=== PATIENT | female | born 1960 | race Caucasian/White ===

== ENCOUNTER → 2018-04-01 | Outpatient (CLI) | payer OTHER ==
[~2018-04-01] MED LIST: ABAC300; ALBU90OI INH; ALBU90OI61 INH; CELE200 PO; CRUTCH4 USE; CYCL10 PO; ENOX40I SC; FLUSAL1005 INH; FLUSAL2505 INH; GLUC500 PO; HYDACE5 PO; HYDACE5325 PO; HYDROCHLOROTHIAZIDE PO; IBUP400 PO; LANS15EC PO; Multivitamin1 EAC1; NAPR220 PO; OMEP20ER PO; Omeprazole20 M1 PO; Percocet 10-321 EACH PO; Prednisone20 MG PO; SERT100 PO; TRAM50 PO; VALSARTAN PO; VALSARTAN-HCTZ1 EAC1 PO; VICODIN 5-3001 EACH PO; ZYRTEC PO
[2018-04-03 15:07] LABS: HPV 16 Positive (Negative); HPV 18 Negative (Negative); HPV OTHER HR TYPES Negative (Negative)
== END ==
LOC: LAB 16:16 → LAB SHORT 16:16
PROVIDERS: Obstetrics & Gynecology
DX: Z12.4 Encounter for screening for malignant neoplasm of cervix (principal)
CPT/HCPCS: 87624; 87625; G0123

== ENCOUNTER 2018-08-28 10:38 | Day surgery (SDC) | payer OTHER ==
[~2018-08-28] VITALS: Ht 170.2 cm; Wt 130.4 kg
[~2018-08-28 10:38] MED LIST changes: +ALBU3IS INH; +BENADRYL25 MG PO; +CRANBERRY250 MG; +Flovent 110 MCG12 GM INH; +IBUP800 PO; +LOSARTAN-HCTZ1 EACH PO; +MONT10T PO; +OMEPRAZOLE MAGN20 MG PO; +OXYC10TA19 PO; +One Daily Comp1 EACH PO; +POTASSIUM; +QVAR REDIHALE10.6 G1 INH; +VITAMIN D-32000 UNIT PO; +Zoloft100 MG PO
--- NOTE | 2018-08-28 11:22 | NUR ---
08/28/18 1122 Jordan Cruz 1ST IV ATTEMPT IN RH UNSUCCESSFUL, HIT VALVE, ORSC.DFT 2ND IV ATTEMPT IN RAC SUCCESSFUL. ORSC.DFT
== END 2018-08-28 13:40 | disposition home or self-care (01) ==
LOC: ORSCSDS 10:38
PROVIDERS: Internal Medicine Gastroenterology
PROC: 0DB68ZX Excision of Stomach, Via Natural or Artificial Opening Endoscopic, Diagnostic (ICD-10-PCS; principal; 2018-08-28 12:00)
PROC: 0DBN8ZX Excision of Sigmoid Colon, Via Natural or Artificial Opening Endoscopic, Diagnostic (ICD-10-PCS; principal; 2018-08-28 12:00)
PROC: 0DBM8ZX Excision of Descending Colon, Via Natural or Artificial Opening Endoscopic, Diagnostic (ICD-10-PCS; principal; 2018-08-28 12:00)
PROC: 0DB58ZX Excision of Esophagus, Via Natural or Artificial Opening Endoscopic, Diagnostic (ICD-10-PCS; principal; 2018-08-28 12:00)
PROC: 0DBL8ZX Excision of Transverse Colon, Via Natural or Artificial Opening Endoscopic, Diagnostic (ICD-10-PCS; principal; 2018-08-28 12:00)
DX: R10.11 Right upper quadrant pain (principal); K21.9 Gastro-esophageal reflux disease without esophagitis; Z86.010 Personal history of colon polyps; K22.70 Barrett's esophagus without dysplasia; K74.60 Unspecified cirrhosis of liver; K44.9 Diaphragmatic hernia without obstruction or gangrene; D12.3 Benign neoplasm of transverse colon; D12.4 Benign neoplasm of descending colon; D12.5 Benign neoplasm of sigmoid colon; K57.30 Diverticulosis of large intestine without perforation or abscess without bleeding; K64.8 Other hemorrhoids; I10 Essential (primary) hypertension; J45.909 Unspecified asthma, uncomplicated; Z87.891 Personal history of nicotine dependence; K75.81 Nonalcoholic steatohepatitis (NASH); G47.33 Obstructive sleep apnea (adult) (pediatric); E66.01 Morbid (severe) obesity due to excess calories; Z68.42 Body mass index [BMI] 45.0-49.9, adult; Z79.899 Other long term (current) drug therapy
CPT/HCPCS: 88305; 88342; J2405; J3010; J7120

== ENCOUNTER → 2019-03-31 | Outpatient (CLI) | payer OTHER ==
[2019-03-31 15:44] LABS: U Amphetamine Screen Not Detected; U Barbituate Screen Not Detected; U Benzodiazapine Screen Not Detected; U Buprenorphine Screen Not Detected; U Cannabinoids Screen Not Detected; U Cocaine Screen Not Detected; U Methadone Screen Not Detected; U Methamphetamine Screen Not Detected; U Opiates Screen Not Detected; U Oxycodone Screen DETECTED; U Phencyclidine Screen Not Detected; U Propoxyphene Screen Not Detected
== END | disposition home or self-care (01) ==
LOC: LAB SHORT 15:04 → LAB 15:04
PROVIDERS: Internal Medicine
DX: Z51.81 Encounter for therapeutic drug level monitoring (principal); Z79.891 Long term (current) use of opiate analgesic
CPT/HCPCS: G0480

== ENCOUNTER → 2019-05-12 | Outpatient (CLI) | payer OTHER ==
[2019-05-14 15:07] LABS: HPV 16 Negative (Negative); HPV 18 Negative (Negative); HPV OTHER HR TYPES Negative (Negative)
== END | disposition home or self-care (01) ==
LOC: LAB SHORT 19:27 → LAB 19:27
PROVIDERS: Obstetrics & Gynecology
DX: R87.810 Cervical high risk human papillomavirus (HPV) DNA test positive (principal)
CPT/HCPCS: 87624; 88142

== ENCOUNTER → 2020-05-23 | Outpatient (CLI) | payer OTHER | LOC: LAB SHORT 07:28 → PLD 07:28 | DX: D07.1 Carcinoma in situ of vulva (principal) | CPT/HCPCS: 88305 ==

== ENCOUNTER → 2020-05-23 | Outpatient (CLI) | payer OTHER ==
[2020-05-25 16:07] LABS: HPV 16 Negative (Negative); HPV 18 Negative (Negative); HPV OTHER HR TYPES Negative (Negative)
== END ==
LOC: LAB SHORT 17:33 → LAB 17:33
PROVIDERS: Obstetrics & Gynecology
DX: Z12.4 Encounter for screening for malignant neoplasm of cervix (principal)
CPT/HCPCS: 87624; G0123

== ENCOUNTER 2020-09-14 06:19 | Day surgery (SDC) | payer OTHER ==
[~2020-09-14] VITALS: Ht 165.1 cm; Wt 131.0 kg
[~2020-09-14 06:19] MED LIST changes: +Narcan 0.40.4 MG/ML
--- NOTE | 2020-09-14 07:54 | NUR ---
09/14/20 0754 Ritu Quintana BUPIVACAINE 0.5% 30ML MIXED WITH EPI 0.15CC FOR A CONSTITUTION OF BUPIVACAINE 0.5% W/ EPI 1:200,000. INJECTED BY DR. ELIZALDE
== END 2020-09-14 09:10 | disposition home or self-care (01) ==
LOC: ORSCSDS 06:19
PROVIDERS: Obstetrics & Gynecology
PROC: 0UBM0ZX Excision of Vulva, Open Approach, Diagnostic (ICD-10-PCS; principal; 2020-09-14 07:30)
DX: D07.1 Carcinoma in situ of vulva (principal); I10 Essential (primary) hypertension; J45.909 Unspecified asthma, uncomplicated; Z86.19 Personal history of other infectious and parasitic diseases; K76.0 Fatty (change of) liver, not elsewhere classified; Z87.891 Personal history of nicotine dependence
CPT/HCPCS: 88305; J0171; J1100; J2250; J2405; J2704; J3010

== ENCOUNTER → 2021-10-18 | Outpatient (CLI) | payer OTHER ==
[2021-10-18 15:19] LABS: U Amphetamine Screen Not Detected; U Barbituate Screen Not Detected; U Benzodiazapine Screen Not Detected; U Buprenorphine Screen Not Detected; U Cannabinoids Screen DETECTED; U Cocaine Screen Not Detected; U Methadone Screen Not Detected; U Methamphetamine Screen Not Detected; U Opiates Screen Not Detected; U Oxycodone Screen DETECTED; U Phencyclidine Screen Not Detected; U Propoxyphene Screen Not Detected
== END | disposition home or self-care (01) ==
LOC: LAB SHORT 13:06 → LAB FUT 10-17 15:45
PROVIDERS: Internal Medicine
DX: Z51.81 Encounter for therapeutic drug level monitoring (principal); Z79.899 Other long term (current) drug therapy

== ENCOUNTER 2021-11-13 09:32 | Day surgery (SDC) | payer OTHER ==
[~2021-11-13] VITALS: Ht 170.2 cm; Wt 125.1 kg
[2021-11-13] MEDS ORDERED: MORP30ER (09:46)
[2021-11-13] MEDS ORDERED: Norco 10-325 T1 EACH (09:49)
[2021-11-13] MEDS ORDERED: GABA800 (09:49)
[2021-11-13] MEDS ORDERED: METF500 (09:50)
[2021-11-13] MEDS ORDERED: PARO20 (09:50)
[2021-11-13] MEDS ORDERED: Cyclobenzaprine5 MG (09:50)
[2021-11-13] MEDS ORDERED: Crestor20 MG (09:50)
[2021-11-13] MEDS ORDERED: Estradiol1 MG (09:50)
[2021-11-13] MEDS ORDERED: BRINTELLIX20 MG (10:50)
[2021-11-13] MEDS ORDERED: Ventolin5 MG/1 ML (10:59)
[2021-11-13] MEDS ORDERED: QVAR REDIHALE10.6 G2 (11:00)
[2021-11-13] MEDS ORDERED: AMLO10 (11:00)
[2021-11-13] MEDS ORDERED: MONT10T (11:00)
[2021-11-13] MEDS ORDERED: Flonase 0.05% N16 GM (11:00)
[2021-11-13] MEDS ORDERED: OXYC10TA19 (11:01)
[2021-11-13] MEDS ORDERED: NALOXONE HC1 MG/1 ML (11:01)
[2021-11-13] MEDS ORDERED: OMEP20ER (11:01)
[2021-11-13] MEDS ORDERED: POTASSIUM (11:02)
[2021-11-13] MEDS ORDERED: PRAV20 (11:02)
--- NOTE | 2021-11-13 12:54 | NUR ---
11/13/21 1254 Petty Brewer HIGH FIBER DIET/DIVERTICULOSIS PAMPHLETS GIVEN TO PT PRIOR TO D/C TO HOME.
== END 2021-11-13 12:54 | disposition home or self-care (01) ==
LOC: ORSCSDS 09:32
PROVIDERS: Internal Medicine Gastroenterology
PROC: 0DBL8ZX Excision of Transverse Colon, Via Natural or Artificial Opening Endoscopic, Diagnostic (ICD-10-PCS; principal; 2021-11-13 11:00)
PROC: 0DBN8ZX Excision of Sigmoid Colon, Via Natural or Artificial Opening Endoscopic, Diagnostic (ICD-10-PCS; principal; 2021-11-13 11:00)
PROC: 0DBK8ZX Excision of Ascending Colon, Via Natural or Artificial Opening Endoscopic, Diagnostic (ICD-10-PCS; principal; 2021-11-13 11:00)
PROC: 0DB58ZX Excision of Esophagus, Via Natural or Artificial Opening Endoscopic, Diagnostic (ICD-10-PCS; principal; 2021-11-13 11:00)
PROC: 0DBH8ZX Excision of Cecum, Via Natural or Artificial Opening Endoscopic, Diagnostic (ICD-10-PCS; principal; 2021-11-13 11:00)
DX: K22.70 Barrett's esophagus without dysplasia (principal); Z12.11 Encounter for screening for malignant neoplasm of colon; Z86.010 Personal history of colon polyps; D12.3 Benign neoplasm of transverse colon; D12.0 Benign neoplasm of cecum; D12.5 Benign neoplasm of sigmoid colon; D12.2 Benign neoplasm of ascending colon; Z87.891 Personal history of nicotine dependence; K76.0 Fatty (change of) liver, not elsewhere classified; K74.60 Unspecified cirrhosis of liver; K57.30 Diverticulosis of large intestine without perforation or abscess without bleeding; K64.8 Other hemorrhoids; K44.9 Diaphragmatic hernia without obstruction or gangrene; Z79.899 Other long term (current) drug therapy; G47.33 Obstructive sleep apnea (adult) (pediatric); J44.9 Chronic obstructive pulmonary disease, unspecified; E66.01 Morbid (severe) obesity due to excess calories; Z68.42 Body mass index [BMI] 45.0-49.9, adult; I10 Essential (primary) hypertension
CPT/HCPCS: 88305; J2704; J7120

== ENCOUNTER 2024-09-30 08:24 | Day surgery (SDC) | payer OTHER ==
[~2024-09-30] VITALS: Ht 170.2 cm; Wt 107.4 kg
[~2024-09-30 08:24] MED LIST changes: +AMLO10; +BRINTELLIX20 MG; +Crestor20 MG; +Cyclobenzaprine5 MG; +Estradiol1 MG; +Flonase 0.05% N16 GM; +GABA800; +Hair, Skin & N1 EACH; +Lactated Ringer's 1,000 ML IV ONE; +METF500; +MONT10T; +MORP30ER; +NALOXONE HC1 MG/1 ML; +Norco 10-325 T1 EACH; +OMEP20ER; +OXYC10TA19; +PARO20; +PRAV20; +QVAR REDIHALE10.6 G2; +REXULTI1 MG; +SERT100; +Ventolin5 MG/1 ML
[2024-09-30] MEDS ORDERED: Lidocaine HCl 4% 5 ML SDA ONE (08:56)
[2024-09-30] MEDS ORDERED: OXYCODONE HCL E (08:59)
[2024-09-30] MEDS ORDERED: Lactated Ringer's 1,000 ML IV ONE (09:16)
[2024-09-30] MEDS ORDERED: Midazolam HCl 1MG / ML 2ML Vial ONE (09:21)
[2024-09-30] MEDS ORDERED: propofoL 50 ML IV ONE (09:35)
[2024-09-30 10:30] VITALS: BP 112/62
== END 2024-09-30 10:25 | disposition home or self-care (01) ==
LOC: ORSCSDS 08:24
PROVIDERS: Specialist
PROC: 0DB58ZX Excision of Esophagus, Via Natural or Artificial Opening Endoscopic, Diagnostic (ICD-10-PCS; principal; 2024-09-30 10:00)
PROC: 0DB68ZX Excision of Stomach, Via Natural or Artificial Opening Endoscopic, Diagnostic (ICD-10-PCS; principal; 2024-09-30 10:00)
DX: K22.70 Barrett's esophagus without dysplasia (principal); K76.6 Portal hypertension; K44.9 Diaphragmatic hernia without obstruction or gangrene; K31.89 Other diseases of stomach and duodenum; K74.60 Unspecified cirrhosis of liver; K21.9 Gastro-esophageal reflux disease without esophagitis; I10 Essential (primary) hypertension; G47.33 Obstructive sleep apnea (adult) (pediatric); E66.01 Morbid (severe) obesity due to excess calories; Z68.37 Body mass index [BMI] 37.0-37.9, adult; Z79.899 Other long term (current) drug therapy
CPT/HCPCS: 88305; 88342; J2003; J2250; J2704; J7120

== ENCOUNTER 2024-11-16 10:50 | Day surgery (SDC) | payer OTHER ==
[~2024-11-16] VITALS: Ht 170.2 cm; Wt 101.3 kg
[~2024-11-16 10:50] MED LIST changes: +Balanced Salt Epinephrine Irrigation Solution 500 mL IR SCH; +Diazepam 2 MG Tab PO PRN; +Diazepam 5 MG Tab PO PRN; +Diazepam 5 MG Tab PO SCH; -Lactated Ringer's 1,000 ML IV ONE; +Lidocaine HCl/Pf 1% 5 ML VIAL XX SCH; +Moxifloxacin HCL 0.5 MG/0.1 ML 0.4MLSYR RIGHTEYE SCH; +NS 500 ML IV ONE; +OXYCODONE HCL E; +Ondansetron 4 MG SoluTab MM PRN; +PHENYLEPHRINE\\TROPICAMIDE\\TETRACAINE OPHTHALMIC DILATING SOLN RIGHTEYE PRN; +Povidone-Iodine 450 DROP/30 ML Solution ONE; +Povidone-Iodine 450 DROP/30 ML Solution RIGHTEYE SCH; +Tetracaine HCl/Pf 0.5% Opth Soln 4 ml ONE; +diazePAM 5 MG,diazePAM 2 MG PO SCH
[2024-11-16] MEDS ORDERED: FLUTICASONE PRO12 G1 INH (11:28)
[2024-11-16] MEDS ORDERED: NS 500 ML IV ONE (11:30)
[2024-11-16] MEDS ORDERED: Midazolam HCl 1MG / ML 2ML Vial ONE (11:38)
[2024-11-16] MEDS ORDERED: FentaNYL Citrate 50 MCG/ML 2 ML Injection ONE (11:38)
--- NOTE | 2024-11-16 11:38 | NUR ---
11/16/24 1138 Vaishnavi Charles IN AT 1120 PLESANDOR IN AT [address] EDUCATION REGARDING WHAT TO EXPECT DURING TODAY'S SURGERY AND DISCHARGE TEACHING DONE IN PREOP.
[2024-11-16 12:30] VITALS: BP 134/78
== END 2024-11-16 12:41 | disposition home or self-care (01) ==
LOC: ORSCSDS 10:50
PROVIDERS: Student in an Organized Health Care Education/Training Program
PROC: 08RJ3JZ Replacement of Right Lens with Synthetic Substitute, Percutaneous Approach (ICD-10-PCS; principal; 2024-11-16 12:30)
DX: H25.811 Combined forms of age-related cataract, right eye (principal); Z96.1 Presence of intraocular lens; I10 Essential (primary) hypertension; Z79.02 Long term (current) use of antithrombotics/antiplatelets; J44.89 Other specified chronic obstructive pulmonary disease; Z87.891 Personal history of nicotine dependence; E66.9 Obesity, unspecified; Z68.35 Body mass index [BMI] 35.0-35.9, adult; I25.10 Atherosclerotic heart disease of native coronary artery without angina pectoris; Z79.899 Other long term (current) drug therapy
CPT/HCPCS: J2250; J3010; J7040; V2632

== ENCOUNTER 2025-02-22 08:51 | Day surgery (SDC) | payer OTHER ==
[~2025-02-22] VITALS: Ht 170.2 cm; Wt 91.1 kg
[~2025-02-22 08:51] MED LIST changes: -Diazepam 2 MG Tab PO PRN; -Diazepam 5 MG Tab PO PRN; -Diazepam 5 MG Tab PO SCH; +FLUTICASONE PRO12 G1 INH; -Lidocaine HCl/Pf 1% 5 ML VIAL XX SCH; +Moxifloxacin HCL 0.5 MG/0.1 ML 0.4MLSYR LEFTEYE SCH; -Moxifloxacin HCL 0.5 MG/0.1 ML 0.4MLSYR RIGHTEYE SCH; -NS 500 ML IV ONE; +PHENYLEPHRINE\\TROPICAMIDE\\TETRACAINE OPHTHALMIC DILATING SOLN LEFTEYE PRN; -PHENYLEPHRINE\\TROPICAMIDE\\TETRACAINE OPHTHALMIC DILATING SOLN RIGHTEYE PRN; +Povidone-Iodine 450 DROP/30 ML Solution LEFTEYE SCH; -Povidone-Iodine 450 DROP/30 ML Solution RIGHTEYE SCH; -diazePAM 5 MG,diazePAM 2 MG PO SCH
--- NOTE | 2025-02-22 09:14 | NUR ---
02/22/25 0914 Lilia Mariscal INITIAL ANXIETY: 01/27
[2025-02-22] MEDS ORDERED: MOUNJARO2.5 MG/0.5 (09:23)
[2025-02-22] MEDS ORDERED: REXULTI3 MG PO (09:24)
[2025-02-22] MEDS ORDERED: ALBU90OI (09:24)
[2025-02-22] MEDS ORDERED: ZOLOFT10013 PO (09:26)
--- NOTE | 2025-02-22 09:53 | NUR ---
02/22/25 0953 Conchis Morelos 0946 BP:121/75 HR:63 O2%:97 RESP:16
[2025-02-22 10:02] VITALS: BP 133/85
--- NOTE | 2025-02-22 10:16 | NUR ---
02/22/25 Kiran Vazquez PT DENIES PAIN AND NAUSEA AT THIS TIME. PT AGREEABLE TO D/C HOME WITH PAULINE.
== END 2025-02-22 10:16 | disposition home or self-care (01) ==
LOC: ORSCSDS 08:51
PROVIDERS: Student in an Organized Health Care Education/Training Program
PROC: 08RK3JZ Replacement of Left Lens with Synthetic Substitute, Percutaneous Approach (ICD-10-PCS; principal; 2025-02-22 10:30)
DX: H25.812 Combined forms of age-related cataract, left eye (principal); Z96.1 Presence of intraocular lens; Z87.891 Personal history of nicotine dependence; J44.9 Chronic obstructive pulmonary disease, unspecified; I10 Essential (primary) hypertension; G47.33 Obstructive sleep apnea (adult) (pediatric); Z79.899 Other long term (current) drug therapy
CPT/HCPCS: A9270; V2632